=== PATIENT | female | born 1985 | race American Indian/Alaskan Native ===

== ENCOUNTER 2019-10-06 15:46 | Emergency (ER) | payer MEDICAID ==
[2019-10-06] MEDS ORDERED: ONDANSETRON 4 MG/2 ML INJ IV ONE (16:37)
[2019-10-06] MEDS ORDERED: SODIUM CHLORIDE 0.9% 1000 ML 1,000 ML IV ONE (16:37)
--- NOTE | 2019-10-06 17:02 | Emergency Department Report ---
ED Abdominal Pain HPI - General Chief Complaint: Abdominal Pain Stated Complaint: ABDOMINAL PAIN/NAUSEA Time Seen by Provider: 10/06/19 16:37 Source: EMS Mode of arrival: Stretcher Limitations: No Limitations - History of Present Illness Initial Comments: 34-year-old female presents to ED with complaint of right lower quadrant pain. Patient states pain began this morning. Patient reports a history of right ovarian cyst. She states she began her menstrual period on yesterday. States pain began this morning when she awoke, with associated nausea and vomiting. EMS arrived, patient was given Zofran 4 mg and fentanyl 50 mcg. Patient denies any fever, urinary symptoms, vaginal discharge. MD Complaint: abdominal pain -: This morning Location: RLQ Radiation: none Migration to: no migration Severity: severe Quality: aching, sharp Consistency: constant Improves With: nothing Worsens With: nothing Associated Symptoms: nausea, vomiting. denies: diarrhea, fever, dysuria - Related Data Previous Rx's Medication Instructions Recorded Last Taken Type HYDROcodone/APAP 5-325 [[place] 1 each PO Q6HR PRN #7 tablet 10/06/19 Unknown Rx 5/325] Naproxen [Naprosyn] 500 mg PO BID #20 tablet 10/06/19 Unknown Rx Ondansetron [Zofran Odt] 4 mg PO Q8HR PRN #20 tab.rapdis 10/06/19 Unknown Rx Allergies Allergy/AdvReac Type Severity Reaction Status Date / Time No Known Allergies Allergy Unverified 10/06/19 20:34 ED Review of Systems ROS: Stated complaint: ABDOMINAL PAIN/NAUSEA Other details as noted in HPI Comment: All other systems reviewed and negative Constitutional: denies: chills, fever Gastrointestinal: abdominal pain, nausea, vomiting Genitourinary: denies: dysuria, hematuria ED Past Medical Hx - Past Medical History Previous Medical History?: Yes Additional medical history: Ovarian Cysts - Surgical History Past Surgical History?: No - Social History Smoking Status: Never Smoker Substance Use Type: None - Medications Home Medications: Home Medications Medication Instructions Recorded Confirmed Last Taken Type HYDROcodone/APAP 5-325 [[place] 1 each PO Q6HR PRN #7 tablet 10/06/19 Unknown Rx 5/325] Naproxen [Naprosyn] 500 mg PO BID #20 tablet 10/06/19 Unknown Rx Ondansetron [Zofran Odt] 4 mg PO Q8HR PRN #20 tab.rapdis 10/06/19 Unknown Rx ED Physical Exam - General Limitations: No Limitations General appearance: alert, other (Appears uncomfortable) - Head Head exam: Present: atraumatic, normocephalic - Eye Eye exam: Present: normal appearance, EOMI - ENT ENT exam: Present: mucous membranes moist - Neck Neck exam: Present: normal inspection - Respiratory Respiratory exam: Present: normal lung sounds bilaterally. Absent: respiratory distress - Cardiovascular Cardiovascular Exam: Present: regular rate, normal rhythm - GI/Abdominal GI/Abdominal exam: Present: soft, tenderness (Suprapubic and right lower quadrant). Absent: distended - Extremities Exam Extremities exam: Present: normal inspection - Neurological Exam Neurological exam: Present: alert, oriented X3 - Psychiatric Psychiatric exam: Present: normal affect, normal mood - Skin Skin exam: Present: warm, dry, intact, normal color ED Course Vital Signs 10/06/19 10/06/19 10/06/19 16:26 17:00 17:05 Temperature 98.7 F Pulse Rate 72 84 Respiratory 20 18 Rate Blood Pressure 142/85 Blood Pressure 136/81 [Left] O2 Sat by Pulse 100 99 Oximetry 10/06/19 18:45 Temperature Pulse Rate Respiratory 16 Rate Blood Pressure Blood Pressure [Left] O2 Sat by Pulse Oximetry ED Medical Decision Making - Lab Data Result diagrams: 10/06/19 17:51 10/06/19 17:51 - Radiology Data Radiology results: report reviewed, image reviewed - Medical Decision Making Patient presents to ED with right pelvic pain. Known history of right ovarian cyst. Ultrasound shows 15 cm complex right ovarian cyst, no evidence of ovarian torsion. Patient informed that the differentials for her ovarian cyst includes benign and also malignant disease. I informed her that she will need to have an MRI to further evaluate this finding. Patient states she has a cardiology consultant that she is able to follow-up with. Vital signs stable. Labs are unremarkable. Patient is feeling better at this time following IV fluids and pain meds. Will discharge home. Outpatient follow-up advised, return precautions given. - Differential Diagnosis Ovarian cyst, ovarian torsion, appendicitis, ectopic Critical care attestation.: If time is entered above; I have spent that time in minutes in the direct care of this critically ill patient, excluding procedure time. ED Disposition Clinical Impression: Ovarian cyst Disposition: DC-01 TO HOME OR SELFCARE Is pt being admited?: No Condition: Stable Instructions: Ovarian Cyst (ED), Abdominal Pain (ED) Additional Instructions: You will need to follow up with your cardiology consultant as soon as possible to schedule an MRI for further evaluation of your cyst. Prescriptions: Naproxen [Naprosyn] 500 mg PO BID #20 tablet HYDROcodone/APAP 5-325 [[place] 5/325] 1 each PO Q6HR PRN #7 tablet PRN Reason: Pain Ondansetron [Zofran Odt] 4 mg PO Q8HR PRN #20 tab.rapdis PRN Reason: Vomiting Referrals: PRIMARY CARE, [Primary Care Provider] - 3-5 Days LIONEL MCGUIRE MD [Staff Physician] - 3-5 Days [facility] [Provider Group] - 3-5 Days Time of Disposition: 20:22
--- NOTE | 2019-10-06 17:46 | Ultrasound Report ---
ULTRASOUND PELVIS INDICATION: Right pelvic pain. History of right ovarian cyst. TECHNIQUE: Transabdominal. Duplex Color Doppler used: Yes. COMPARISON: None available FINDINGS: Uterus: Present. Size: 7.6 x 4.1 x 5.1 cm. Endometrial complex: Normal measuring 0.4 cm. Mass lesions: None. Additional findings: None. Right Ovary: Size: 15.7 x 10.3 x 15.6 cm Blood flow: Normal. Cyst or mass: A complex cystic lesion measures 14.0 x 9.2 x 13.4 cm. Left Ovary: Not visualized. Urinary Bladder: Normal. Free Fluid: None. Additional Findings: None. IMPRESSION: Large complex right ovarian cystic lesion. Considerations include ovarian cystadenoma and cystadenoca rcinoma. A nonemergent MRI of the pelvis with and without contrast is recommended for further evaluat ion. Signer Name: Kimo Winkler MD Signed: 10/06/2019 5:42 PM Workstation Name: [id number]
[2019-10-06] MEDS ORDERED: MORPHINE 2 MG/1 ML INJ IV ONE (18:10)
[2019-10-06 18:36] LABS: BUN/Creatinine Ratio 17; Bilirubin,Direct < 0.2 mg/dL (0-0.2); Blood Urea Nitrogen 10 mg/dL (7-17); Calcium 8.7 mg/dL (8.4-10.2)
[2019-10-06 18:37] LABS: Alanine Aminotransferase 9 units/L (7-56); Albumin 4.3 g/dL (3.9-5)
[2019-10-06 18:41] LABS: Hemoglobin 11.4 gm/dl (10.1-14.3); Mean Corpuscular HGB Conc 33 % (30-34); Mean Corpuscular Volume 91 fl (79-97); Platelet Count 254 K/mm3 (140-440); Red Blood Count 3.83 M/mm3 (3.65-5.03); Red Cell Distribution Width 13.5 % (13.2-15.2)
[2019-10-06 20:00] LABS: Bilirubin,Urine NEG (Negative); Blood,Urine LG (Negative); Color,Urine Yellow (Yellow); Mucus,Urine FEW /HPF; Urobilinogen,Urine < 2.0 mg/dL (<2.0)
[2019-10-06 20:01] LABS: RBC,Urine > 182.0 /HPF (0.0-6.0)
[2019-10-07 01:24] LABS: Basophils % (Manual) 0 % (0.0-1.8); Eosinophils % (Manual) 0 % (0.0-4.3); Total Cells Counted 100
[2019-10-07 01:26] LABS: Platelet Estimate Consistent w Auto
[2019-10-07 07:42] VITALS: BP 123/72
== END 2019-10-06 20:41 | disposition home or self-care (01) ==
LOC: ED 15:46
DX: N83.201 Unspecified ovarian cyst, right side (principal); Z79.899 Other long term (current) drug therapy
CPT/HCPCS: 36415; 80048; 80076; 81001; 84702; 85007; 85025; 87086; 93975; 96361; 96374; 96375; 99284; J2270; J2405; J7030